=== PATIENT | male | born 2000 | race Caucasian/White ===

== ENCOUNTER 2022-10-10 16:07 | Emergency (ER) | payer BC, SELFPAY ==
--- NOTE | 2022-10-10 16:13 | ED.NAVMDI ---
HPI - Nausea/Vomiting/Diarrhea General Chief complaint: Nausea/Vomiting/Diarrhea Stated complaint: abdominal pain, vomiting Time Seen by Provider: 10/10/22 16:13 Source: patient and RN notes reviewed History of Present Illness HPI Narrative: Patient is a 22-year-old male who presents to urgent care with complaints of nausea, vomiting, diarrhea intermittent abdominal pain for a week and a half. Patient states that his symptoms have greatly improved over the last 24 hours however he has been missing work and needed a work note. Patient denies any abdominal pain right now. Denies any nausea. States he had a normal bowel movement this morning. No other acute complaints. No acute distress noted. Patient aware of the plan of care. Some parts of this dictation were generated by voice recognition software and may contain typographical and/or grammatical inaccuracies. Related Data Allergies Allergy/AdvReac Type Severity Reaction Status Date / Time No Known Allergies Allergy Unverified 10/10/22 16:10 Review of Systems Review of Systems: CONSTITUTIONAL: Denies fever, chills, or sweats. EYES: Denies visual changes, redness, or discharge. ENT: Denies rhinorrhea, congestion, sore throat, or otalgia. CARDIOVASCULAR: Denies chest pain, palpitations, or edema. RESPIRATORY: Denies cough or dyspnea. GASTROINTESTINAL: Reports of intermittent abdominal pains, nausea, vomiting and diarrhea GENITOURINARY: Denies dysuria or hematuria. SKIN: Denies rash or itching. MUSCULOSKELETAL: Denies back pain, joint pain, or myalgia. NEUROLOGIC: Denies headache, numbness, or weakness. All other systems reviewed are negative, except as documented in HPI. PMFSH Comments At the time of my signature, I reviewed and agree with the nursing past medical, surgical, social, and family history. There is no relevant family history pertinent to the patient complaint. Exam Narrative: GENERAL: This is a well-nourished, well-developed patient, in no apparent distress. HEAD: normocephalic, atraumatic. EYES: PERRL. Sclera clear/white. Vision is grossly intact. EARS: External ears normal, auditory canals clear and without drainage, TMs normal without perforation. Hearing grossly intact. NOSE: External nose normal with no obvious nasal discharge, nares without redness, no rhinorrhea. THROAT: Mucous membranes moist, posterior pharynx clear. NECK: Neck supple CARDIOVASCULAR: Regular rate and rhythm without murmurs, gallops, or rubs. RESPIRATORY: Clear to auscultation. Breath sounds equal bilaterally. No wheezes, rales, or rhonchi. GASTROINTESTINAL: Abdomen soft, mild epigastric tenderness, nondistended. Bowel sounds are active. No guarding. SKIN: warm, intact with no suspicious lesions or rash, good texture and turgor. NEURO: awake, alert, and oriented to person, place and time. There were no obvious focal neurologic abnormalities. EXTREMITIES: No clubbing, cyanosis, or edema. Course Course Level of Care: Express Care Visit Vital Signs Vital signs: Vital Signs Temperature 98.2 F 10/10/22 16:15 Pulse Rate 81 10/10/22 16:15 Respiratory Rate 18 10/10/22 16:15 Blood Pressure 114/72 10/10/22 16:15 Pulse Oximetry 99 10/10/22 16:15 Oxygen Delivery Room Air 10/10/22 16:15 Temperature 98.2 F 10/10/22 16:15 Pulse Rate 81 10/10/22 16:15 Respiratory Rate 18 10/10/22 16:15 Blood Pressure 114/72 10/10/22 16:15 Pulse Oximetry 99 10/10/22 16:15 Oxygen Delivery Room Air 10/10/22 16:15 reviewed MDM - Nausea/Vomiting/Diarrhea MDM Narrative Medical decision making narrative: advised patient to use the Zofran as needed for intermittent nausea. Eat a bland diet until symptoms have completely subsided. If he develops any increase in symptoms associated with returned abdominal pain, nausea, vomiting, fever -go to the emergency room. Follow-up with your PCP in 2 days symptoms or failure to improve. Differential Diagnosis Differe
[2022-10-10 16:15] VITALS: BP 114/72; PULSE 81; RESP 18; TEMP 36.8; O2SAT 99
== END 2022-10-10 16:30 | disposition home or self-care (01) ==
PROVIDERS: Emergency Provider Nurse Practitioner Family
DX: R11.0 Nausea (principal)
CPT/HCPCS: 99203; G0463